=== PATIENT | male | born 1955 | race Caucasian/White ===

== ENCOUNTER 2016-08-05 00:52 | Emergency (ER) | payer BC, OTHER ==
[2016-08-05] MEDS ORDERED: NITROGLYCERIN 2% OINTMENT 1 GM PACKET TP ONE (01:47)
[2016-08-05] MEDS ORDERED: NITROGLYCERIN 0.4 MG/TAB 25 TAB/BOTTLE SL ONE (02:07)
[2016-08-05] MEDS ORDERED: NITROGLYCERIN 0.4 MG/TAB 25 TAB/BOTTLE ONE (02:08)
[2016-08-05] MEDS ORDERED: NORMAL SALINE 1000 ML 1,000 ML IV ONE (02:29)
[2016-08-05 02:37] LABS: ABSOLUTE EOSINOPHILS # (AUTO) 0.1 10^3/uL (0.0-0.6); ABSOLUTE LYMPHOCYTES (AUTO) 1.3 10^3/uL (0.5-4.7); ABSOLUTE MONOCYTES (AUTO) 0.5 10^3/uL (0.1-1.4); BASOPHILS % (AUTO) 0.4 % (0-2); EOSINOPHILS % (AUTO) 1.7 % (0-6); HEMATOCRIT 45.8 % (37.9-51.0); HEMOGLOBIN 15.5 g/dL (13.5-17.0); HGB HCT DIFFERENCE 0.7; LYMPHOCYTES % (AUTO) 22.1 % (13-45); MEAN CORPUSCULAR HEMOGLOBIN 32.6 pg (27.0-33.4); MEAN CORPUSCULAR HGB CONC 33.8 g/dL (32.0-36.0); MEAN CORPUSCULAR VOLUME 97 fl (80-97); MONOCYTES % (AUTO) 9.2 % (3-13); RED BLOOD COUNT 4.75 10^6/uL (4.35-5.55); RED CELL DISTRIBUTION WIDTH 13.1 % (11.5-14.0); SEGMENTED NEUTROPHILS % (AUTO) 66.6 % (42-78)
[2016-08-05 02:48] LABS: ALANINE AMINOTRANSFERASE 54 U/L (21-72); ALBUMIN 4.3 g/dL (3.5-5.0); ALKALINE PHOSPHATASE 75 U/L (38-126); ANION GAP 9 (5-19); ASPARTATE AMINO TRANSFERASE 39 U/L (17-59); BILIRUBIN,TOTAL 0.6 mg/dL (0.2-1.3); BLOOD UREA NITROGEN 8 mg/dL (7-20); CALCIUM 9.8 mg/dL (8.4-10.2); CARBON DIOXIDE 28 mmol/L (22-30); CHLORIDE 93 mmol/L (98-107); CREATININE RESULT 0.77 mg/dL (0.52-1.25); GLUCOSE 98 mg/dL (75-110); LIPASE 149.2 U/L (23-300); POTASSIUM 4.8 mmol/L (3.6-5.0); SODIUM 130.4 mmol/L (137-145); TOTAL PROTEIN 7.3 g/dL (6.3-8.2)
[2016-08-05] MEDS ORDERED: GLUCAGON,HUMAN RECOMB 1 MG INJ IV ONE (03:24)
[2016-08-05] MEDS: NORMAL SALINE 1000 ML 1,000 ML IV PRN ×2 (03:37→04:00)
--- NOTE | 2016-08-05 03:40 | ER Document Report ---
ED General - General Chief Complaint: Other Stated Complaint: THROAT PAIN Mode of Arrival: Ambulatory Information source: Patient Notes: Patient is a 60-year-old male who presents to the ER today for feeling like something is stuck in his throat. Patient states that he was eating steak tonight and he feels like it got stuck further down in his chest and cannot get it to go down, now cannot swallow his own saliva. He denies any history of esophageal spasms or any thing else GI related and is only on medication for hypertension. He did try to take Tums without any relief. TRAVEL OUTSIDE OF THE [place] IN LAST 30 DAYS: No - Related Data Allergies/Adverse Reactions: No Known Allergies Allergy (Verified 08/05/16 00:57) Past Medical History - General Information source: Patient - Social History Smoking Status: Never Smoker Chew tobacco use (# tins/day): No Frequency of alcohol use: beer/daily Drug Abuse: None Family History: Reviewed & Not Pertinent Patient has suicidal ideation: No Patient has homicidal ideation: No Renal/ Medical History: Denies: Hx Peritoneal Dialysis Surgical Hx: Negative Review of Systems - Review of Systems Constitutional: No symptoms reported EENT: See HPI Cardiovascular: No symptoms reported Respiratory: No symptoms reported Gastrointestinal: No symptoms reported Genitourinary: No symptoms reported Male Genitourinary: No symptoms reported Musculoskeletal: No symptoms reported Skin: No symptoms reported Hematologic/Lymphatic: No symptoms reported Neurological/Psychological: No symptoms reported Physical Exam - Vital signs Vitals: Temp Pulse Resp BP Pulse Ox 97.8 F 65 16 155/98 H 99 08/05/16 00:58 08/05/16 00:58 08/05/16 00:58 08/05/16 00:58 08/05/16 00:58 - Notes Notes: PHYSICAL EXAMINATION: GENERAL: Well-appearing and in no acute distress. HEAD: Atraumatic, normocephalic. EYES: Pupils equal round and reactive to light, extraocular movements intact, sclera anicteric, conjunctiva are normal. ENT: nares patent, oropharynx clear without exudates. Moist mucous membranes. airway patent but saliva in mouth, pt spitting into sink NECK: Normal range of motion, supple without lymphadenopathy LUNGS: CTAB and equal. No wheezes rales or rhonchi. HEART: Regular rate and rhythm without murmurs ABDOMEN: Soft, no tenderness. No guarding, no rebound EXTREMITIES: Normal range of motion, no pitting edema. No cyanosis. NEUROLOGICAL: Cranial nerves grossly intact. Normal sensory/motor exams. PSYCH: Normal mood, normal affect. SKIN: Warm, Dry, normal turgor, no rashes or lesions noted Course - Re-evaluation Re-evalutation: 08/05/16 03:36 x rays of chest and soft tissue neck negative for any acute pathology. pt failed nitroglycerin for esophageal relaxation, still cannot swallow liquid or saliva, Dr. Whitehead, GI at [facility] was consulted and advises glucagon IV 1mg for relaxation and if that doesn't work to call back and he'll gladly take the patient for endoscopy. Dr. Walls, my attending at this time has been consulted about this patient. 08/05/16 04:37 glucagon worked, pt able to drink pepsi in small sips without any issue. I will provide him nausea medication and send him home as he is demanding to go home at this time. I will provide him with GI information to call first thing in the morning. - Vital Signs Vital signs: Temp Pulse Resp BP Pulse Ox 97.9 F 66 14 147/87 H 96 08/05/16 04:00 08/05/16 01:45 08/05/16 04:01 08/05/16 04:00 08/05/16 04:01 - Laboratory Result Diagrams: 08/05/16 02:25 08/05/16 02:25 Laboratory results interpreted by me: 08/05/16 02:25 Sodium 130.4 L Chloride 93 L Discharge - Discharge Clinical Impression: Food impaction of esophagus Qualifiers: Encounter type: initial encounter Qualified Code(s): T18.128A - Food in esophagus causing other injury, initial encounter Condition: Stable Disposition: HOME, SELF-CARE Instructions: Esophageal Spasm ([facility]), Esophageal Food Impaction ([facility]) Additional Instructions: Return immediately for any new or worsening symptoms. Follow up with GI, call tomorrow to make followup appointment. Prescriptions: Ondansetron [Zofran Odt 4 mg Tablet] 1 - 2 tab PO Q4H PRN #15 tab.rapdis PRN Reason: For Nausea/Vomiting Forms: Parent Work Note Referrals: SUBHASH NORMAN MD [Primary Care Provider] - Follow up as needed VÍCTOR MORENO MD [ACTIVE STAFF] - Follow up as needed
[2016-08-05 04:33] VITALS: BP 147/87
[2016-08-05] MEDS ORDERED: ONDANSETRON 4 MG TAB.RAPDIS PO ONE (04:34)
[2016-08-05] MEDS ORDERED: ONDANSETRON ODT 4 MG TAB (6 TAB/DSPK) PO PRN (04:34)
== END 2016-08-05 04:58 | disposition home or self-care (01) ==
LOC: ER 00:52
DX: T18.128A Food in esophagus causing other injury, initial encounter (principal); X58.XXXA Exposure to other specified factors, initial encounter
CPT/HCPCS: 99283; 96361; 96374; 36415; 83690; 85025; 80053; 71020; 70360; S0119; J1610; J7030